=== PATIENT | male | born 1935 | race Caucasian/White ===

== ENCOUNTER 2019-08-24 14:01 | Emergency (ER) | payer SELFPAY ==
[2019-08-24 14:46] LABS: HEMATOCRIT 46.4 % (42.0-52.0); HEMOGLOBIN 15.4 g/dL (13.5-18.0); MEAN CELL VOLUME 84 fl (78-100); MEAN CORPUSCULAR HEMOGLOBIN 28 pg (27-31); MEAN CORPUSCULAR HGB CONC 33 g/dL (33-37); MEAN PLATELET VOLUME 8.7 fl (7.4-10.4); PLATELET COUNT 426 K/mm3 (130-400); RED BLOOD COUNT 5.53 M/mm3 (4.20-5.60); RED CELL DISTRIBUTION WIDTH 14.3 % (11.5-14.5); WHITE BLOOD COUNT 6.4 K/mm3 (4.8-10.8)
[2019-08-24 14:54] LABS: ALBUMIN 3.5 g/dL (3.4-4.8); LYMPHOCYTE 4 % (20-51); MONOCYTE 12 % (3-10); NEUTROPHILS 84 % (42-75); NUCLEATED RED BLOOD CELL 1 (0-6)
[2019-08-24 14:55] LABS: POTASSIUM 4.3 mmol/L (3.5-5.1)
[2019-08-24 14:56] LABS: CALCIUM 9.7 mg/dL (8.3-10.5)
[2019-08-24 14:57] LABS: TOTAL PROTEIN 6.5 g/dL (6.2-8.1)
[2019-08-24 14:59] LABS: TOTAL BILIRUBIN 0.5 mg/dL (0.2-1.2)
[2019-08-24 15:07] LABS: PROTHROMBIN TIME 10.5 SECONDS (9.0-12.0)
[2019-08-24 19:00] VITALS: BP 155/86
== END 2019-08-24 19:53 | disposition short-term general hospital (02) ==
LOC: ED 14:01
PROVIDERS: Physician Assistant
DX: R59.0 Localized enlarged lymph nodes (principal); J94.8 Other specified pleural conditions; R91.1 Solitary pulmonary nodule; K76.9 Liver disease, unspecified; Z87.891 Personal history of nicotine dependence
CPT/HCPCS: Q9967